=== PATIENT | male | born 1970 | race Caucasian/White ===

== ENCOUNTER 2016-12-11 00:35 | Emergency (ER) | payer BC ==
[2016-12-11 00:51] LABS: Glucose,Whole Blood 91 mg/dL (75-99)
[2016-12-11] MEDS ORDERED: predniSONE 20 MG TAB PO STA (01:09)
[2016-12-11] MEDS ORDERED: valACYclovir 500 MG TAB PO STA (01:09)
--- NOTE | 2016-12-11 01:16 | ED ---
General Adult HPI - General Chief complaint: Neuro Symptoms/Deficit Stated complaint: stroke symptoms Time Seen by Provider: 12/11/16 00:44 Source: patient Mode of arrival: ambulatory Limitations: no limitations - History of Present Illness Initial comments: This patient is a 46-year-old man who presents to be evaluated for right-sided facial numbness and weakness. The patient states that he was in his usual state of health until over about the past day when he felt he was developing an ear infection. He went to see his clinic doctor and was started on medication. The patient states that starting about an hour before he got here, he started feeling some numbness to his right face and then when he tried to spit he noted that there was some dribbling from the right side of his mouth. The patient was concerning may be having a stroke and came here to be evaluated. Patient denies other symptoms. No headache, no change in vision, speech or swallowing. No weakness or numbness of the extremities. Onset/Timin -: hour(s) Location: face Radiation: non-radiation Quality: dull Consistency: constant Improves with: none Worsens with: none Associated Symptoms: other (Ear pain) - Related Data Home Medications Medication Instructions Recorded Confirmed Amoxicillin 875 mg PO Q12HR 12/11/16 12/11/16 Metoprolol Tartrate [Lopressor] 25 mg PO DAILY 12/11/16 12/11/16 Previous Rx's Medication Instructions Recorded Hydrocodone/Acetaminophen [[place] 1 each PO Q6HR PRN #20 tab 12/11/16 5-325] predniSONE 40 mg PO BID #15 tab 12/11/16 valACYclovir HCL [Valacyclovir] 1,000 mg PO Q12HR #14 tab 12/11/16 Allergies Allergy/AdvReac Type Severity Reaction Status Date / Time lisinopril Allergy Swelling Verified 12/11/16 00:39 Review of Systems ROS Statement: Those systems with pertinent positive or pertinent negative responses have been documented in the HPI. ROS Other: All systems not noted in ROS Statement are negative. Constitutional: Denies: fever, chills Eyes: Denies: eye pain, eye discharge, vision change ENT: Reports: ear pain. Denies: hearing loss Respiratory: Denies: cough, dyspnea Cardiovascular: Denies: chest pain, palpitations, syncope Gastrointestinal: Denies: abdominal pain, vomiting, diarrhea Genitourinary: Denies: dysuria Musculoskeletal: Denies: back pain Skin: Denies: rash Neurological: Reports: weakness (Right face), numbness (Right face). Denies: headache, confusion Past Medical History Past Medical History: No Reported History History of Any Multi-Drug Resistant Organisms: None Reported Past Surgical History: No Surgical Hx Reported Past Psychological History: No Psychological Hx Reported Smoking Status: Never smoker Past Alcohol Use History: Occasional Past Drug Use History: None Reported General Exam Limitations: no limitations General appearance: alert, in no apparent distress Head exam: Present: atraumatic, normocephalic Eye exam: Present: PERRL, EOMI. Absent: scleral icterus, conjunctival injection , nystagmus, periorbital swelling, periorbital tenderness ENT exam: Present: normal oropharynx, mucous membranes moist, TM's normal bilaterally, normal external ear exam Neck exam: Present: normal inspection, full ROM. Absent: tenderness, meningismus Respiratory exam: Present: normal lung sounds bilaterally. Absent: respiratory distress, wheezes, rales, rhonchi, stridor Cardiovascular Exam: Present: regular rate, normal rhythm, normal heart sounds. Absent: systolic murmur, diastolic murmur, rubs, gallop GI/Abdominal exam: Present: soft. Absent: distended, tenderness, guarding, rebound Neurological exam: Present: alert, oriented X3, other (Patient has right-sided facial weakness, including the upper portion of the face.). Absent: motor sensory deficit Skin exam: Present: warm, dry, intact, normal color. Absent: rash Course Vital Signs 12/11/16 12/11/16 12/11/16 00:36 00:45 01:39 Temperature 98.0 F Pulse Rate 68 62 62 Respiratory 18 16 18 Rate Blood Pressure 180/109 143/98 126/82 O2 Sat by Pulse 98 94 L 95 Oximetry EKG Findings - EKG Results: EKG: interpreted by ERMD, sinus rhythm (Rate 60 bpm) - Blocks, [place], Hypertrophy, ST Abn: AV and intraventricular conduction: right bundle branch block (fixed/ intermittent, complete/incomplete) QRS axis and voltage: left axis deviation (-30 to -90) Chamber hypertrophy or enlargement: only voltage criteria for left ventricular hypertrophy Medical Decision Making - Medical Decision Making This patient is a 46-year-old man presenting with right facial weakness that is consistent with Phillips's palsy as the upper face is affected as well without any sparing. Given the history of the ear symptoms this is also consistent. There are no herpetic lesions visible. The patient started on medical treatment here with prescription as well. Discussed appropriate care and follow-up - Lab Data Lab Results 12/11/16 Range/Units 00:49 POC Glucose (mg/dL) 91 (75-99) mg/dL POC Glu Flatbed Stitcher ID Erlinda Pierson Disposition Clinical Impression: Phillips's palsy Disposition: HOME SELF-CARE Condition: Fair Instructions: Phillips Palsy (ED) Prescriptions: Hydrocodone/Acetaminophen [[place] 5-325] 1 each PO Q6HR PRN #20 tab PRN Reason: Pain predniSONE 40 mg PO BID #15 tab valACYclovir HCL [Valacyclovir] 1,000 mg PO Q12HR #14 tab Referrals: Deshawn Lima III, MD [Primary Care Provider] - 1-2 days
[2016-12-11 03:56] VITALS: BP 132/90; PULSE 61; RESP 16; TEMP 97.2
== END 2016-12-11 02:42 | disposition home or self-care (01) ==
LOC: EC 00:35
DX: G51.0 Bell's palsy (principal); Z79.899 Other long term (current) drug therapy; Z88.8 Allergy status to other drugs, medicaments and biological substances
CPT/HCPCS: 36415; 93005; 99284; J7512

== ENCOUNTER 2019-09-20 11:10 | Day surgery (SDC) | payer BC ==
[2019-09-17 18:02] VITALS: BMI 30.7
[~2019-09-20 11:10] MED LIST: LACTATED RINGERS 1,000 ML IV SCH
[2019-09-20 11:42] VITALS: RESP 16; TEMP 98.2
[2019-09-20] MEDS ORDERED: LIDOCAINE 1% (10MG/ML) FOR IV START INTRADERMA ONE (11:42)
[2019-09-20] MEDS ORDERED: PROPOFOL 10 MG/ML 20 ML VIAL IV ONE (12:07)
--- NOTE | 2019-09-20 12:12 | P.GSHP ---
History of Present Illness H&P Date: 09/20/19 Chief Complaint: Screening colonoscopy This a 49-year-old male who presents today for screening colonoscopy. Patient denies a significant GI complaints. Past Medical History Past Medical History: Hypertension Additional Past Medical History / Comment(s): Off Rx for HTN d/t wgt loss. History of Any Multi-Drug Resistant Organisms: None Reported Past Surgical History: Hernia Repair, Orthopedic Surgery Additional Past Surgical History / Comment(s): Colonoscopy. 3 knee scopes - 2 Rt, 1 Lt. Hiatal hernia repair. Past Anesthesia/Blood Transfusion Reactions: No Reported Reaction Smoking Status: Never smoker - Past Family History Father Family Medical History: Cancer Mother Family Medical History: Cancer Medications and Allergies Home Medications Medication Instructions Recorded Confirmed Type Cholecalciferol (Vitamin D3) 500 unit PO DAILY 09/17/19 09/20/19 History [Vitamin D3] Collagen 180 mg PO DAILY 09/17/19 09/20/19 History Ibuprofen [Motrin Ib] 200 mg PO Q8H PRN 09/17/19 09/20/19 History [place]-3 Fatty Acids [[place]-3] 1,000 mg PO DAILY 09/17/19 09/20/19 History Turmeric Root Extract [Turmeric] 2,000 mg PO DAILY 09/17/19 09/20/19 History Allergies Allergy/AdvReac Type Severity Reaction Status Date / Time lisinopril Allergy Swelling Verified 09/20/19 11:25 Surgical - Exam Vital Signs Temp Pulse Resp BP Pulse Ox 98.2 F 76 16 138/89 100 09/20/19 11:32 09/20/19 11:32 09/20/19 11:32 09/20/19 11:32 09/20/19 11:32 - General well developed, well nourished, no distress - Eyes PERRL - ENT normal pinna - Neck no masses - Respiratory normal expansion - Cardiovascular Rhythm: regular - Abdomen Abdomen: soft, non tender Assessment and Plan Plan: We'll perform screening colonoscopy
--- NOTE | 2019-09-20 12:21 | P.OP ---
Date of Procedure: 09/20/19 Preoperative Diagnosis: Screening colonoscopy Postoperative Diagnosis: Internal hemorrhoids Procedure(s) Performed: Colonoscopy Anesthesia: MAC Surgeon: Gee Parks Pathology: none sent Condition: stable Disposition: PACU Description of Procedure: The patient's placed on the endoscopy table in the lateral position. He received IV sedation. Digital rectal exam was performed which revealed internal hemorrhoids. Flexible colonoscope was then placed patient anus passed throughout the entire colon. The ileocecal valve was visualized. The cecum, ascending transverse colon appeared normal. The descending and; appeared normal. Scope was then brought back the rectum and this appeared normal. Scope withdrawn for patient.
[2019-09-20 12:51] VITALS: BP 128/82; PULSE 75
== END 2019-09-20 13:12 | disposition home or self-care (01) ==
LOC: ORWHC2ENDO 11:10
PROVIDERS: ATTEND Surgery
DX: Z12.11 Encounter for screening for malignant neoplasm of colon (principal); K64.8 Other hemorrhoids; I10 Essential (primary) hypertension; Z79.899 Other long term (current) drug therapy; Z88.8 Allergy status to other drugs, medicaments and biological substances; Z98.890 Other specified postprocedural states; Z80.9 Family history of malignant neoplasm, unspecified
CPT/HCPCS: G0121; J2704; 45378

== ENCOUNTER → 2020-01-09 | Outpatient (CLI) | payer BC ==
[2020-01-09 11:09] LABS: HCT 43.7 % (39.0-53.0); HGB 14.2 gm/dL (13.0-17.5); MCH 30.2 pg (25.0-35.0); MCHC 32.4 g/dL (31.0-37.0); MCV 93.1 fL (80.0-100.0); Mean Platelet Volume 6.8; Platelet Count 402 k/uL (150-450); RDW 12.4 % (11.5-15.5); WBC 8.1 k/uL (3.8-10.6)
== END | disposition home or self-care (01) ==
LOC: LABWHC1 10:33
PROVIDERS: ATTEND Orthopaedic Surgery
DX: Z01.818 Encounter for other preprocedural examination (principal); Z01.812 Encounter for preprocedural laboratory examination
CPT/HCPCS: 36415; 85027; 87070

== ENCOUNTER 2020-03-11 08:31 | Day surgery (SDC) | payer BC ==
[2020-03-05 16:25] VITALS: BMI 29.5
[~2020-03-11 08:31] MED LIST changes: +ACETAMINOPHEN TAB 500 MG TAB PO ONE; +HEPARIN SODIUM,PORCINE 5,000 UNIT/ML 1 ML VIAL SQ ONE; +HYDROmorphone 0.5 MG/0.5 ML SYRINGE IVP PRN; +NA PHOS,M-B/NA PHOS,DI-BA 133 ML ENEMA RECTAL ONE; +Pre Op ABX Message 1 EACH MISC MISCELLANE ONE
[2020-03-11 09:01] VITALS: TEMP 97.8
[2020-03-11] MEDS ORDERED: DEXAMETHASONE SOD PHOS (MDV) 100 MG/10 ML VIAL IVP ONE (09:15)
[2020-03-11] MEDS ORDERED: LACTATED RINGERS 1,000 ML IV ONE ×2 (09:15→11:12)
[2020-03-11] MEDS ORDERED: ONDANSETRON 4 MG/2 ML VIAL IVP ONE (09:15)
[2020-03-11] MEDS ORDERED: MIDAZOLAM 2 MG/2 ML VIAL IV ONE (10:15)
[2020-03-11 10:23] VITALS: RESP 16
--- NOTE | 2020-03-11 10:36 | P.GSHP ---
History of Present Illness H&P Date: 03/11/20 Chief Complaint: Internal and external hemorrhoids This 48-year-old male presents today for hemorrhoidectomy. He has issues with itching and burning pain and rectal bleeding. Past Medical History Past Medical History: Hypertension, Osteoarthritis (OA), Sleep Apnea/CPAP/BIPAP Additional Past Medical History / Comment(s): Off Rx for HTN d/t wgt loss. No tx for sleep apnea. Varicose veins. Hemorrhoids. History of Any Multi-Drug Resistant Organisms: None Reported Past Surgical History: Hernia Repair, Joint Replacement, Orthopedic Surgery Additional Past Surgical History / Comment(s): Colonoscopy. 3 knee scopes - 2 Rt, 1 Lt. Hiatal hernia repair. Rt little finger fx repair. Total Rt Knee 02/06/20. Past Anesthesia/Blood Transfusion Reactions: No Reported Reaction Smoking Status: Never smoker - Past Family History Mother Family Medical History: Cancer Father Family Medical History: Cancer Additional Family Medical History / Comment(s): prostate cancer Medications and Allergies Home Medications Medication Instructions Recorded Confirmed Type Ibuprofen [Motrin Ib] 200 mg PO Q8H PRN 09/17/19 03/05/20 History Acetaminophen [Tylenol Extra 500 - 1,000 mg PO DIRECTED PRN 03/05/20 03/05/20 History Strength] Aspirin 325 mg PO BID 03/05/20 03/05/20 History Psyllium Husk 100% [Metamucil 6 gm PO DAILY 03/05/20 03/05/20 History Packet] Allergies Allergy/AdvReac Type Severity Reaction Status Date / Time lisinopril Allergy Swelling Verified 03/05/20 15:53 Surgical - Exam Vital Signs Temp Pulse Resp BP Pulse Ox 97.8 F 76 18 147/86 98 03/11/20 08:59 03/11/20 08:59 03/11/20 08:59 03/11/20 08:59 03/11/20 08:59 - General well developed, well nourished, no distress - Eyes PERRL - ENT normal pinna - Neck no masses - Respiratory normal expansion - Cardiovascular Rhythm: regular - Abdomen Abdomen: soft, non tender Assessment and Plan Assessment: Internal and external hemorrhoids. We'll perform hemorrhoidectomy.
[2020-03-11] MEDS ORDERED: KETAMINE 10 MG/ML 20 ML VIAL ONE (10:47)
[2020-03-11] MEDS ORDERED: HYDROmorphone (PF) 1 MG/ML ONE (10:47)
[2020-03-11] MEDS ORDERED: PROPOFOL 10 MG/ML 20 ML VIAL IV ONE (10:47)
[2020-03-11] MEDS ORDERED: MIDAZOLAM 2 MG/2 ML VIAL ONE (10:47)
[2020-03-11] MEDS ORDERED: LIDOCAINE 1% INJ 10MG/ML (20 ML MDV) ONE (10:47)
[2020-03-11] MEDS ORDERED: KETOROLAC 30 MG/ML 1 ML VIAL ONE (10:47)
[2020-03-11] MEDS ORDERED: fentaNYL (PF) 50 MCG/ML 2 ML AMP ONE (10:47)
--- NOTE | 2020-03-11 11:18 | P.OP ---
Date of Procedure: 03/11/20 Preoperative Diagnosis: Internal and external hemorrhoids Postoperative Diagnosis: Internal and external hemorrhoids Procedure(s) Performed: Internal and external hemorrhoidectomy Anesthesia: MAC Surgeon: Gee Parks Estimated Blood Loss (ml): 5 Pathology: other (Internal and external hemorrhoids) Condition: stable Disposition: PACU Description of Procedure: The patient's placed on the operative table in the prone jackknife position. He received IV sedation. His anus was prepped and draped usual fashion. The anus was anesthetized 1% local Xylocaine. The anal retractors placed anus. The left lateral hemorrhoidal column was grasped. Allis clips and using the Harmonic scissors the hemorrhoid was performed. Next the right anterior hemorrhoid column was grasped with an Allis clamp and then using Harmonic scissors the hemorrhoid was performed. There is no bleeding seen. Anus is packed with Gelfoam. Patient top she will was sent to recovery in stable condition.
[2020-03-11] MEDS ORDERED: BUPIVACAINE (PF) 0.25% 30 ML VIAL SQ ONE (11:25)
[2020-03-11 11:50] VITALS: BP 146/88; PULSE 66
== END 2020-03-11 12:06 | disposition home or self-care (01) ==
LOC: OR 08:31
PROVIDERS: ATTEND Surgery
DX: K64.8 Other hemorrhoids (principal); K64.4 Residual hemorrhoidal skin tags; I10 Essential (primary) hypertension; M19.90 Unspecified osteoarthritis, unspecified site; G47.30 Sleep apnea, unspecified; R63.4 Abnormal weight loss; Z96.651 Presence of right artificial knee joint; Z98.890 Other specified postprocedural states; Z80.42 Family history of malignant neoplasm of prostate; Z80.9 Family history of malignant neoplasm, unspecified; Z79.82 Long term (current) use of aspirin; Z79.899 Other long term (current) drug therapy; Z88.8 Allergy status to other drugs, medicaments and biological substances
CPT/HCPCS: 88304; 46260; J2250; J1644; J2405; J2001; J3010; J1885; J1170; J1100; J2704

== ENCOUNTER → 2020-05-07 | Outpatient (CLI) | payer BC ==
--- NOTE | 2020-05-07 20:34 | CONS ---
CONSULTATION DATE OF SERVICE: 05/07/2020 This patient is a 50-year-old gentleman who has been evaluated in Sleep Center for obstructive sleep apnea-hypopnea syndrome. HISTORY OF PRESENT ILLNESS/SLEEP-WAKE EVALUATION: The patient was diagnosed with obstructive sleep apnea about 16 years ago. He was on treatment with CPAP until about 2 years ago, when he lost 20 pounds and stopped using his machine. The patient's present sleep schedule during working days is from 9 or 10 p.m. until 5 a.m. and on weekends from 10:30 p.m. until 7 a.m. No problems with falling asleep. No TV in the bedroom. According to the patient, he does not snore, but he wakes up from sleep 2 times with up to 2 episodes of nocturia at night. Positive history of awakenings with dry mouth and sweating. During the day the patient may take a nap around 2:30 p.m. [place] Sleepiness Scale is 5. PAST MEDICAL HISTORY: Past medical history is positive for hypertension. After losing weight, blood pressure normalized, according to the patient. Knee problems. PAST SURGICAL HISTORY: Hiatal hernia repair, right knee replacement. MEDICATIONS: None. SOCIAL HISTORY: Negative for smoking. Alcohol consumption occasional. FAMILY HISTORY: Cancer, hyperlipidemia, hypertension, acid reflux. PHYSICAL EXAMINATION: GENERAL: A pleasant patient in no distress. VITAL SIGNS: BP 136/88, HR 72, RR 15, height 5 feet 10-1/2 inches, weight 204 pounds, BMI 29.2, temperature 98.8, oxygen saturation at room air 96%. HEENT: PERRLA, EOMI. Evaluation of oropharynx showed tongue protrudes midline. Moderately low position of soft palate. Mallampati II to III. NECK: Supple. No JVD. Thyroid is not palpable. Neck measures 16 inches in circumference. LUNGS: Clear to percussion and to auscultation. Good air exchange. No wheezing or rhonchi. HEART: S1, S2 regular. No murmurs, gallops or rubs. ABDOMEN: Soft and nontender. Bowel sounds are present. No organomegaly appreciated. EXTREMITIES: No clubbing or cyanosis. ELIGIBILITY EXAMINER: Awake, alert, and oriented X3. Cranial nerves 2 to 7 intact. There is no fasciculation or atrophy. noted. No focal deficits observed. IMPRESSION: 1. History of obstructive sleep apnea-hypopnea syndrome, positive history of snoring in the past, at present awakenings from sleep 2 times with nocturia. The patient stopped CPAP after he lost 20 pounds. He has a moderately low position of soft palate. Possible obstructive sleep apnea-hypopnea syndrome. 2. Overweight, borderline to obesity. BMI 29.2. 3. History of hypertension. According to the patient, blood pressure improved after he lost weight. 4. Knee problems. The patient is preparing for a knee replacement. 5. Status post surgical treatment for hiatal hernia. PLAN: 1. Home sleep apnea test for evaluation of patient's breathing during sleep. 2. Following plan after reviewing results of sleep study. 3. Watching and losing weight. 4. Sleep hygiene with regular time in bed for 7-1/2 to 8 hours. 5. No driving if feeling any sleepiness. Thank you very much for referring this patient for consultation. Sincerely, Manish Fuchs MD, PhD, FAASM Diplomat of [place] [employer] [place] [employer] Wheel Polisher of [facility] [place] MMODL / IJN: [id number] /
== END | disposition home or self-care (01) ==
LOC: SLEEP 15:39
PROVIDERS: ATTEND Internal Medicine
DX: R35.1 Nocturia (principal); Z96.659 Presence of unspecified artificial knee joint; Z87.898 Personal history of other specified conditions; Z87.19 Personal history of other diseases of the digestive system
CPT/HCPCS: 99211

== ENCOUNTER → 2020-05-12 | Outpatient (CLI) | payer BC ==
[2020-05-12 17:16] LABS: HCT 43.7 % (39.0-53.0); HGB 14.3 gm/dL (13.0-17.5); MCH 30.6 pg (25.0-35.0); MCHC 32.6 g/dL (31.0-37.0); MCV 93.9 fL (80.0-100.0); Mean Platelet Volume 6.9; Platelet Count 301 k/uL (150-450); RBC 4.66 m/uL (4.30-5.90); RDW 12.6 % (11.5-15.5); WBC 6.5 k/uL (3.8-10.6)
== END | disposition home or self-care (01) ==
LOC: LABWHC1 15:46
PROVIDERS: ATTEND Orthopaedic Surgery
DX: Z01.818 Encounter for other preprocedural examination (principal); Z01.812 Encounter for preprocedural laboratory examination
CPT/HCPCS: 36415; 85027; 87070

== ENCOUNTER → 2020-09-17 | Outpatient (CLI) | payer BC ==
--- NOTE | 2020-09-17 23:38 | SFUN ---
SLEEP CENTER FOLLOW UP NOTE DATE OF SERVICE: 09/17/2020 This is a 50-year-old gentleman who has been followed in Sleep Center for treatment of obstructive sleep apnea-hypopnea syndrome. Recently the patient had a home sleep apnea test which showed moderate obstructive sleep apnea-hypopnea syndrome, and I discussed results of the sleep study with the patient in detail. I started the patient on treatment with CPAP, and today is his first visit after treatment with CPAP was initiated. The patient sleeps better with the CPAP, feels better during the day. He does not complain of any significant problems with the CPAP unit at present. He has already changed his mask several times from nasal pillows to full-face mask. [place] Sleepiness Scale today is only 1, which is normal. I checked his CPAP unit. Range of the pressure is 5 to 15 with average pressure 12.6 cm of water. Usage is 29/30 nights, and 18/30 nights for more than 4 hours, with average usage 4.5 hours per night. Leak is 24 L/minute, which is borderline. Apnea-hypopnea index is 2.2, which is normal. MEDICATIONS: None. PHYSICAL EXAMINATION: GENERAL: A pleasant patient in no distress. VITAL SIGNS: BP 146/87, HR 78, RR 18, weight 223 pounds, temperature 97.3, oxygen saturation at room air 98%. HEENT: PERRLA, EOMI. Evaluation of oropharynx showed tongue protrudes midline. Mallampati II to III. NECK: Supple. No JVD. Thyroid is not palpable. LUNGS: Clear to percussion and to auscultation. Good air exchange. No wheezing or rhonchi. HEART: S1, S2 regular. No murmurs, gallops or rubs. ABDOMEN: Soft and nontender. Bowel sounds are present. No organomegaly appreciated. EXTREMITIES: No clubbing or cyanosis. MINE TECHNICIAN: Awake, alert, and oriented X3. Cranial nerves 2 to 7 intact. There is no fasciculation or atrophy. noted. No focal deficits observed. IMPRESSION: 1. Obstructive sleep apnea-hypopnea syndrome. Patient demonstrated great compliance with treatment, benefitting from treatment. 2. Overweight. 3. History of hypertension in the past. Borderline blood pressure in the office. 4. Knee problem. 5. Status post surgical treatment for hiatal hernia. PLAN: 1. Patient will continue to use PAP equipment every night for the whole night. 2. Sleep hygiene with regular time in bed for at least 7-1/2 to 8 hours. 3. Precautions related to driving. No driving if feeling sleepiness. 4. I will maintain all necessary prescription for PAP supplies including mask, tube, filters. 5. Watching weight. 6. No driving if feeling sleepiness. 7. Follow-up visit in 6 months or earlier if patient has any problems. Thank you very much for allowing me to participate in the management of your patient. Sincerely, Manish Fuchs MD, PhD, FAASM Diplomat of [place] [employer] [place] [employer] Clinical Practice Consultant of [facility] [place] MMODL / IJN: [id number] /
== END | disposition home or self-care (01) ==
LOC: SLEEP 15:36
PROVIDERS: ATTEND Internal Medicine
DX: G47.33 Obstructive sleep apnea (adult) (pediatric) (principal); E66.3 Overweight; Z86.79 Personal history of other diseases of the circulatory system; M25.569 Pain in unspecified knee; Z98.890 Other specified postprocedural states; Z99.89 Dependence on other enabling machines and devices

== ENCOUNTER → 2021-04-15 | Outpatient (CLI) | payer BC ==
--- NOTE | 2021-04-15 21:21 | SFUN ---
SLEEP CENTER FOLLOW UP NOTE DATE OF SERVICE: 04/15/2021 This 51-year-old gentleman has been followed in Sleep Center for treatment of obstructive sleep apnea-hypopnea syndrome. Patient continues to use his CPAP equipment but feels that the pressure is too high. Sometimes he feels discomfort in his ears and sometimes he feels some discomfort in his chest in the morning after using the machine. [place] Sleepiness Scale today is zero. I checked his CPAP unit. It is in automatic regimen. Range of the pressure is 5-15, average pressure 13.2, usage 22/30 nights and 16/30 nights for more than 4 hours. Leak is 23 L/minute. Apnea-hypopnea index is 2.7, which is totally normal. MEDICATIONS: None. PHYSICAL EXAMINATION: GENERAL: Pleasant patient in no distress. VITAL SIGNS: BP 138/87, HR 64, RR 12, height 5 feet 11 inches, weight 228.0, body mass index 31.7. The patient's weight increased by 5 pounds. Temperature 97.3. HEENT: PERRLA, EOMI, evaluation of oropharynx showed tongue protrudes midline. Slightly low position of soft palate; Mallampati II to III. NECK: Supple, no JVD. Thyroid is not palpable. LUNGS: Clear to percussion and to auscultation. Good air exchange. No wheezing or rhonchi. HEART: S1, S2 regular. No murmurs, gallops, or rubs. ABDOMEN: Soft and nontender. Bowel sounds are present. No organomegaly appreciated. EXTREMITIES: No clubbing or cyanosis. SHIPPING ROOM SUPERVISOR: Awake, alert, and oriented X3. Cranial nerves 2 to 7 intact. There is no fasciculation or atrophy. noted. No focal deficits observed. IMPRESSION: 1. Obstructive sleep apnea-hypopnea syndrome. The patient demonstrated borderline compliance with treatment, benefitting from treatment. 2. The patient feels discomfort in the ears and in the chest after using CPAP. 3. Mild obesity. Body mass index 31.7. 4. History of hypertension in the past. Borderline blood pressure in the office. 5. Knee problems. 6. Status post surgical treatment for hiatal hernia. PLAN: 1. I changed regimen in the CPAP unit down. Range of the pressure will be 5-12 cm of water. 2. Patient will continue to use PAP equipment every night for the whole night. 3. Sleep hygiene with regular time in bed for at least 7-1/2 to 8 hours. 4. Precautions related to driving. No driving if feeling sleepiness. 5. I will maintain all necessary prescription for PAP supplies including mask, tube, filters. 6. Watching weight. 7. Follow-up visit in 2 months or earlier if patient has any problems. I spent 30 minutes with the patient and documentation. Thank you very much for allowing me to participate in the management of your patient. Sincerely, Manish Fuchs MD, PhD, FAASM Diplomat of [place] [employer] Sleep Medicine Board of [place] [employer] Offender Employment Specialist of [facility] [place] MMODL / IJN: [id number] /
== END | disposition home or self-care (01) ==
LOC: SLEEP 14:23
PROVIDERS: ATTEND Internal Medicine
DX: G47.33 Obstructive sleep apnea (adult) (pediatric) (principal); E66.9 Obesity, unspecified; I10 Essential (primary) hypertension; K44.9 Diaphragmatic hernia without obstruction or gangrene; Z68.31 Body mass index [BMI] 31.0-31.9, adult

== ENCOUNTER → 2021-06-16 | Outpatient (CLI) | payer BC ==
--- NOTE | 2021-06-17 08:29 | SFUN ---
SLEEP CENTER FOLLOW UP NOTE DATE OF SERVICE: This 51-year-old gentleman has been followed in Sleep Center for treatment of obstructive sleep apnea-hypopnea syndrome. The patient was on treatment with CPAP but stopped using his machine for about 10 days because again he developed some chest discomfort after using CPAP. He does not have chest discomfort while he is using CPAP. He feels some chest discomfort on the following day after the night when he used CPAP. I checked his CPAP unit. Pressure was decreased last time from the maximal level of 15 to the maximal level of 12, now with range of the pressure 5 to 12 and average pressure in the machine 11.8. Usage is 16/30 nights and 12/30 nights for more than 4 hours. Average 4.6 hours per night. Leak is 23 L/minute, which is borderline. Apnea-hypopnea index is 3.3, which is in normal range. The last time it was 2.7. Medications: None. [place] Sleepiness Scale is 3. PHYSICAL EXAMINATION: GENERAL APPEARANCE: Pleasant patient in no distress. VITAL SIGNS: BP 155/97, HR 69, RR 18, height 5 feet 10 inches, weight 227.4, temperature 97.1, body mass index 32.5, oxygen saturation at room air 96%. HEENT: PERRLA, EOMI, evaluation of oropharynx showed tongue protrudes midline. Mallampati II to III. NECK: Supple, no JVD. Thyroid is not palpable. LUNGS: Clear to percussion and to auscultation. Good air exchange. No wheezing or rhonchi. HEART: S1, S2 regular. No murmurs, gallops, or rubs. ABDOMEN: Slightly obese. EXTREMITIES: No clubbing or cyanosis. MAJOR DONOR COORDINATOR: Awake, alert, and oriented X3. Cranial nerves 2 to 7 intact. There is no fasciculation or atrophy. noted. No focal deficits observed. IMPRESSION: 1. Obstructive sleep apnea-hypopnea syndrome. Patient still has some discomfort in the chest after using CPAP; this is after pressure was decreased during previous visit. 2. Mild obesity. 3. Hypertension in the office. 4. Knee problems. 5. Status post surgical treatment for hiatal hernia. PLAN: 1. I changed pressure down in the CPAP unit to the range of pressure 5 to 8 cm of water. 2. Patient will continue to use CPAP equipment every night. 3. If the patient feels any discomfort in the chest, he will stop using CPAP and let us know. 4. Losing weight. 5. Sleep hygiene with regular time in bed for 7-1/2 to 8 hours. 6. No driving if feeling sleepiness. 7. Follow-up visit in 3 months or earlier again if patient has any problems. Thank you very much for allowing me to participate in the management of your patient. Sincerely, Manish Fuchs MD, PhD, FAASM Diplomat of [place] [employer] Special[employer] Sleep Medicine Board of [place] [employer] of Internal Medicine Curriculum Manager of [facility] [place] MMODL / SIMIN: [id number] /
== END | disposition home or self-care (01) ==
LOC: SLEEP 14:22
PROVIDERS: ATTEND Internal Medicine
DX: G47.33 Obstructive sleep apnea (adult) (pediatric) (principal); E66.9 Obesity, unspecified; I10 Essential (primary) hypertension; Z98.890 Other specified postprocedural states

== ENCOUNTER → 2021-06-23 | Outpatient (CLI) | payer BC ==
[~2021-06-23] MED LIST changes: -ACETAMINOPHEN TAB 500 MG TAB PO ONE; +CASIRIVIMAB/IMDEVIMAB (EUA) 1,200 MG in SODIUM CHLORIDE 0.9% 100 ML IVPB NR; -HEPARIN SODIUM,PORCINE 5,000 UNIT/ML 1 ML VIAL SQ ONE; -HYDROmorphone 0.5 MG/0.5 ML SYRINGE IVP PRN; -LACTATED RINGERS 1,000 ML IV SCH; -NA PHOS,M-B/NA PHOS,DI-BA 133 ML ENEMA RECTAL ONE; -Pre Op ABX Message 1 EACH MISC MISCELLANE ONE; +SODIUM CHLORIDE 0.9% 50 ML IVPB NR; +SODIUM CHLORIDE 0.9% 500 ML 500 ML in EMPTY BAG 1 BAG IV PRN
[2021-06-23 14:06] VITALS: TEMP 98.5
[2021-06-23 15:02] VITALS: BP 131/83; PULSE 87; RESP 16
== END | disposition home or self-care (01) ==
LOC: PROCWHC3 13:11
PROVIDERS: ATTEND Family Medicine
DX: U07.1 COVID-19 (principal)
CPT/HCPCS: 96360; Q0243; M0243

== ENCOUNTER 2021-06-26 17:08 | Emergency (ER) | payer BC ==
[2021-06-26] MEDS ORDERED: KETOROLAC 30 MG/ML 1 ML VIAL IVP STA (23:03)
[2021-06-26] MEDS ORDERED: SODIUM CHLORIDE 0.9% 1,000 ML IV STA ×2 (23:03)
[2021-06-26] MEDS ORDERED: DEXAMETHASONE SOD PHOSPHATE 10 MG/ML 1 ML VIAL IVP STA (23:03)
[2021-06-26] MEDS ORDERED: ACETAMINOPHEN TAB 500 MG TAB PO STA (23:03)
--- NOTE | 2021-06-26 23:05 | ED ---
Recheck HPI - General Chief Complaint: Nausea/Vomiting/Diarrhea Stated Complaint: Revisit/MedReaction/Nausea Time Seen by Provider: 06/26/21 23:02 Source: patient, RN notes reviewed, old records reviewed Mode of arrival: wheelchair Limitations: no limitations - History of Present Illness Initial Comments: This is a 51-year-old male to the ER for evaluation patient has known positive history of coronavirus coming in for evaluation regarding nausea and vomiting under coronavirus did get antibiodies still not feeling well. MD Complaint: abnormal lab (Positive for coronavirus) -: days(s) Returns Today for: Called Because of Abnormal Lab/Test, persistent/worsening pain related to initial visit, other (Persistent nausea and vomiting) Symptoms Since Prior Visit: worsening pain, fever Context: ran out of medication Associated Symptoms: fever, chills, malaise, nausea, abdominal pain Treatments Prior to Arrival: other medications, Given Pain Meds on - Related Data Home Medications Medication Instructions Recorded Confirmed Ibuprofen [Motrin Ib] 200 mg PO Q8H PRN 09/17/19 03/05/20 Acetaminophen [Tylenol Extra 500 - 1,000 mg PO DIRECTED PRN 03/05/20 03/05/20 Strength] Previous Rx's Medication Instructions Recorded Pantoprazole [Protonix] 40 mg PO DAILY #30 tab 06/27/21 Prochlorperazine [Compazine] 5 mg PO Q6HR #30 tab 06/27/21 Allergies Allergy/AdvReac Type Severity Reaction Status Date / Time lisinopril Allergy Swelling Verified 06/26/21 19:05 Review of Systems ROS Statement: Those systems with pertinent positive or pertinent negative responses have been documented in the HPI. ROS Other: All systems not noted in ROS Statement are negative. Past Medical History Past Medical History: Hypertension, Osteoarthritis (OA), Sleep Apnea/CPAP/BIPAP Additional Past Medical History / Comment(s): Off Rx for HTN d/t wgt loss. No tx for sleep apnea. Varicose veins. Hemorrhoids. History of Any Multi-Drug Resistant Organisms: None Reported Past Surgical History: Hernia Repair, Joint Replacement, Orthopedic Surgery Additional Past Surgical History / Comment(s): Colonoscopy. 3 knee scopes - 2 Rt, 1 Lt. Hiatal hernia repair. Rt little finger fx repair. Total Rt Knee 02/06/20. Past Anesthesia/Blood Transfusion Reactions: No Reported Reaction Past Psychological History: No Psychological Hx Reported Smoking Status: Never smoker Past Alcohol Use History: None Reported Past Drug Use History: None Reported - Past Family History Mother Family Medical History: Cancer Father Family Medical History: Cancer Additional Family Medical History / Comment(s): prostate cancer General Exam Limitations: no limitations General appearance: alert, in no apparent distress Head exam: Present: atraumatic, normocephalic, normal inspection Eye exam: Present: normal appearance, PERRL, EOMI. Absent: scleral icterus, conjunctival injection, periorbital swelling ENT exam: Present: normal exam, mucous membranes moist Neck exam: Present: normal inspection. Absent: tenderness, meningismus, lymphadenopathy Respiratory exam: Present: normal lung sounds bilaterally. Absent: respiratory distress, wheezes, rales, rhonchi, stridor Cardiovascular Exam: Present: regular rate, normal rhythm, normal heart sounds. Absent: systolic murmur, diastolic murmur, rubs, gallop, clicks GI/Abdominal exam: Present: soft, normal bowel sounds. Absent: distended, tenderness, guarding, rebound, rigid Extremities exam: Present: normal inspection, full ROM, normal capillary refill. Absent: tenderness, pedal edema, joint swelling, calf tenderness Back exam: Present: normal inspection Neurological exam: Present: alert, oriented X3, CN II-XII intact Psychiatric exam: Present: normal affect, normal mood Skin exam: Present: warm, dry, intact, normal color. Absent: rash Course Vital Signs 06/26/21 06/26/21 06/27/21 19:02 23:30 00:50 Temperature 98.5 F 98.3 F Pulse Rate 84 71 77 Respiratory 16 20 18 Rate Blood Pressure 140/87 139/71 124/78 O2 Sat by Pulse 98 95 99 Oximetry - Reevaluation(s) Reevaluation #1: 06/27/21 01:02 Medical record is reviewed Reevaluation #2: 06/27/21 01:02 Patient symptoms are significantly improved here in the ER Medical Decision Making - Medical Decision Making 51 male DF for evaluation of nausea vomiting with coronavirus. No other proble ms here in the emergency room, symptoms are resolved and patient can be discharged home - Lab Data Result diagrams: 06/26/21 23:14 06/26/21 23:14 Lab Results 06/26/21 06/26/21 06/26/21 Range/Units 23:14 23:14 23:14 WBC 7.9 (3.8-10.6) k/uL RBC 4.99 (4.30-5.90) m/uL Hgb 15.6 (13.0-17.5) gm/dL Hct 44.9 (39.0-53.0) % MCV 90.0 (80.0-100.0) fL MCH 31.2 (25.0-35.0) pg MCHC 34.7 (31.0-37.0) g/dL RDW 12.5 (11.5-15.5) % Plt Count 246 (150-450) k/uL MPV 8.1 Neutrophils % 79 % Lymphocytes % 11 % Monocytes % 7 % Eosinophils % 0 % Basophils % 0 % Neutrophils # 6.2 (1.3-7.7) k/uL Lymphocytes # 0.9 L (1.0-4.8) k/uL Monocytes # 0.6 (0-1.0) k/uL Eosinophils # 0.0 (0-0.7) k/uL Basophils # 0.0 (0-0.2) k/uL Hyperchromasia Slight PT 10.8 (9.0-12.0) sec INR 1.0 (<1.2) APTT 24.1 (22.0-30.0) sec Sodium 134 L (137-145) mmol/L Potassium 3.4 L (3.5-5.1) mmol/L Chloride 98 (98-107) mmol/L Carbon Dioxide 23 (22-30) mmol/L Anion Gap 13 mmol/L BUN 14 (9-20) mg/dL Creatinine 0.81 (0.66-1.25) mg/dL Est GFR (CKD-EPI)AfAm >90 (>60 ml/min/1.73 sqM) Est GFR (CKD-EPI)NonAf >90 (>60 ml/min/1.73 sqM) Glucose 109 H (74-99) mg/dL Plasma Lactic Acid Deejay (0.7-2.0) mmol/L Calcium 8.7 (8.4-10.2) mg/dL Magnesium 2.1 (1.6-2.3) mg/dL Total Bilirubin 0.9 (0.2-1.3) mg/dL AST 50 (17-59) U/L ALT 49 (4-49) U/L Alkaline Phosphatase 59 (38-126) U/L Lactate Dehydrogenase 714 H (313-618) U/L Troponin I (0.000-0.034) ng/mL C-Reactive Protein 3.6 H (<1.0) mg/dL NT-Pro-B Natriuret Pep pg/mL Total Protein 7.3 (6.3-8.2) g/dL Albumin 4.0 (3.5-5.0) g/dL 06/26/21 06/26/21 06/26/21 Range/Units 23:14 23:14 23:14 WBC (3.8-10.6) k/uL RBC (4.30-5.90) m/uL Hgb (13.0-17.5) gm/dL Hct (39.0-53.0) % MCV (80.0-100.0) fL MCH (25.0-35.0) pg MCHC (31.0-37.0) g/dL RDW (11.5-15.5) % Plt Count (150-450) k/uL MPV Neutrophils % % Lymphocytes % % Monocytes % % Eosinophils % % Basophils % % Neutrophils # (1.3-7.7) k/uL Lymphocytes # (1.0-4.8) k/uL Monocytes # (0-1.0) k/uL Eosinophils # (0-0.7) k/uL Basophils # (0-0.2) k/uL Hyperchromasia PT (9.0-12.0) sec INR (<1.2) APTT (22.0-30.0) sec Sodium (137-145) mmol/L Potassium (3.5-5.1) mmol/L Chloride (98-107) mmol/L Carbon Dioxide (22-30) mmol/L Anion Gap mmol/L BUN (9-20) mg/dL Creatinine (0.66-1.25) mg/dL Est GFR (CKD-EPI)AfAm (>60 ml/min/1.73 sqM) Est GFR (CKD-EPI)NonAf (>60 ml/min/1.73 sqM) Glucose (74-99) mg/dL Plasma Lactic Acid Deejay 1.3 (0.7-2.0) mmol/L Calcium (8.4-10.2) mg/dL Magnesium (1.6-2.3) mg/dL Total Bilirubin (0.2-1.3) mg/dL AST (17-59) U/L ALT (4-49) U/L Alkaline Phosphatase (38-126) U/L Lactate Dehydrogenase (313-618) U/L Troponin I <0.012 (0.000-0.034) ng/mL C-Reactive Protein (<1.0) mg/dL NT-Pro-B Natriuret Pep 67 pg/mL Total Protein (6.3-8.2) g/dL Albumin (3.5-5.0) g/dL - EKG Data -: EKG Interpreted by Me (EKG shows sinus rhythm 80 RI 156 QRS 112 QTc 472) - Radiology Data Radiology results: report reviewed (Chest x-rays negative for acute disease), i mage reviewed Disposition Clinical Impression: Coronavirus infection, Nausea & vomiting Disposition: HOME SELF-CARE Instructions (If sedation given, give patient instructions): Acute Nausea and Vomiting (ED), Coronavirus Disease 2019 (COVID-19) Prescriptions: Prochlorperazine [Compazine] 5 mg PO Q6HR #30 tab Pantoprazole [Protonix] 40 mg PO DAILY #30 tab Is patient prescribed a controlled substance at d/c from ED?: No Referrals: Deshawn Lima III, MD [Primary Care Provider] - 1-2 days
--- NOTE | 2021-06-26 23:36 | XR ---
EXAMINATION TYPE: XR chest 1V portable DATE OF EXAM: 06/26/2021 COMPARISON: NONE HISTORY: Short of breath TECHNIQUE: Single view FINDINGS: Heart and mediastinum are normal. Lungs are clear of consolidation. There are no hilar mass es. Costophrenic angles are clear. Bony thorax is intact. IMPRESSION: Normal heart. No definite acute lung disease.
[2021-06-26 23:46] LABS: Basophils % (A) 0 %; Eosinophils % (A) 0 %; HCT 44.9 % (39.0-53.0); HGB 15.6 gm/dL (13.0-17.5); Hyperchromasia Slight; Lymphocytes # (A) 0.9 k/uL (1.0-4.8); Lymphocytes % (A) 11 %; MCH 31.2 pg (25.0-35.0); MCHC 34.7 g/dL (31.0-37.0); Mean Platelet Volume 8.1; Monocytes # (A) 0.6 k/uL (0-1.0); Monocytes % (A) 7 %; Neutrophils # (A) 6.2 k/uL (1.3-7.7); Neutrophils % (A) 79 %; Platelet Count 246 k/uL (150-450); RBC 4.99 m/uL (4.30-5.90); RDW 12.5 % (11.5-15.5); WBC 7.9 k/uL (3.8-10.6)
[2021-06-27] LABS: ALT 49 U/L (4-49); AST 50 U/L (17-59); African American GFR (CKD) >90 (>60 ml/min/1.73 sqM); Alkaline Phosphatase 59 U/L (38-126); Anion Gap 13 mmol/L; Blood Urea Nitrogen 14 mg/dL (9-20); C Reactive Protein 3.6 mg/dL (<1.0); Calcium 8.7 mg/dL (8.4-10.2); Carbon Dioxide 23 mmol/L (22-30); Chloride 98 mmol/L (98-107); Glucose 109 mg/dL (74-99); LDH 714 U/L (313-618); Magnesium 2.1 mg/dL (1.6-2.3); Non-African American GFR(CKD) >90 (>60 ml/min/1.73 sqM); Potassium 3.4 mmol/L (3.5-5.1); Sodium 134 mmol/L (137-145); Total Bilirubin 0.9 mg/dL (0.2-1.3); Total Protein 7.3 g/dL (6.3-8.2)
[2021-06-27 00:14] LABS: Partial Thromboplastin Time 24.1 sec (22.0-30.0); Prothrombin Time 10.8 sec (9.0-12.0)
[2021-06-27] MEDS ORDERED: PANTOPRAZOLE 40 MG/10 ML VIAL IVP STA (00:33)
[2021-06-27] MEDS ORDERED: PROCHLORPERAZINE INJ 10 MG/2 ML VIAL IVP STA (00:33)
[2021-06-27] MEDS ORDERED: FAMOTIDINE 20 MG/2 ML VIAL IV STA (00:33)
[2021-06-27 02:11] VITALS: BP 130/62; PULSE 62; RESP 22; TEMP 99.2
== END 2021-06-27 01:30 | disposition home or self-care (01) ==
LOC: EC 17:08
DX: B34.2 Coronavirus infection, unspecified (principal); I10 Essential (primary) hypertension; M19.90 Unspecified osteoarthritis, unspecified site; Z88.8 Allergy status to other drugs, medicaments and biological substances
CPT/HCPCS: 36415; 93005; 83880; 80053; 83605; 83615; 83735; 84484; 85025; 85610; 85730; 86140; 71045; 99284; 96374; 96375 ×2; J0780; J1100; J1885; C9113

== ENCOUNTER → 2022-12-06 | Outpatient (CLI) | payer BC ==
[2022-12-07 02:10] LABS: ALT 19 U/L (10-49); AST 19 U/L (14-35); African American GFR (CKD) 101.3 (60.0-200.0); BUN/Creat Ratio 16.17 Ratio (12.00-20.00); Blood Urea Nitrogen 15.8 mg/dL (9.0-27.0); Calcium 9.6 mg/dL (8.7-10.3); Carbon Dioxide 24.1 mmol/L (20.0-27.5); Chloride 101 mmol/L (96-109); Creatine Kinase 106 U/L (35-257); Glucose 88 mg/dL (70-110); Non-African American GFR(CKD) 87.4 (60.0-200.0); Potassium 4.2 mmol/L (3.5-5.5); Sodium 138 mmol/L (135-145); Uric Acid 5.3 mg/dL (3.7-8.7)
[2022-12-07 02:24] LABS: Basophils # (A) 0.07 X 10*3/uL (0.00-0.10); Eosinophils # (A) 0.07 X 10*3/uL (0.04-0.35); HCT 44.5 % (39.6-50.0); HGB 14.5 g/dL (13.0-17.0); Immature Grans, Automated 0.4 %; Lymphocytes # (A) 1.51 X 10*3/uL (0.90-5.00); Lymphocytes % (A) 22.4 %; MCH 30.1 pg (27.0-32.0); MCHC 32.6 g/dL (32.0-37.0); MCV 92.5 fL (80.0-97.0); Mean Platelet Volume 9.6 fL (9.5-12.2); Monocytes # (A) 0.53 X 10*3/uL (0.20-1.00); Monocytes % (A) 7.9 %; NRBC Per 100 WBC 0 /100 WBCS (0.0-0.0); Neutrophils # (A) 4.53 X 10*3/uL (1.80-7.70); Neutrophils % (A) 67.3 %; Platelet Count 353 X 10*3/uL (140-440); RBC 4.81 X 10*6/uL (4.40-5.60); RDW 12.3 % (11.5-14.5); WBC 6.74 X 10*3/uL (4.50-10.00)
[2022-12-07 02:45] LABS: Rheumatoid Factor, Qnt <10 IU/mL (0-15)
[2022-12-07 04:28] LABS: Cyclic Citrull Pep IgG Unit <1.5 U/mL; Cyclic Citrullinated Pep IgG NEGATIVE (NEGATIVE)
[2022-12-07 04:50] LABS: Erythrocyte Sedimentation Rate 47 mm/Hr (0-20)
[2022-12-07 13:02] LABS: Angiotensin-1 Converting Enz. 15 U/L (8-52)
[2022-12-07 13:49] LABS: HLA B27 NEGATIVE
== END | disposition home or self-care (01) ==
LOC: LABWHC1 15:53
PROVIDERS: ATTEND Orthopaedic Surgery
DX: M79.641 Pain in right hand (principal); M79.642 Pain in left hand; M18.0 Bilateral primary osteoarthritis of first carpometacarpal joints
CPT/HCPCS: 36415; 80048; 82164; 82306; 82550; 83520; 84439; 84443; 84450; 84460; 84550; 85025; 85652; 86038; 86140; 86200; 86431; 86812

== ENCOUNTER → 2022-12-15 | Outpatient (CLI) | payer BC ==
[2022-12-15 21:35] LABS: Basophils # (A) 0.06 X 10*3/uL (0.00-0.10); Basophils % (A) 0.8 %; Eosinophils # (A) 0.13 X 10*3/uL (0.04-0.35); Eosinophils % (A) 1.6 %; HCT 43.6 % (39.6-50.0); HGB 14.3 g/dL (13.0-17.0); Immature Grans, Automated 1.1 %; Lymphocytes # (A) 1.88 X 10*3/uL (0.90-5.00); Lymphocytes % (A) 23.5 %; MCH 30.2 pg (27.0-32.0); MCHC 32.8 g/dL (32.0-37.0); MCV 92.2 fL (80.0-97.0); Mean Platelet Volume 9.3 fL (9.5-12.2); Monocytes % (A) 7.5 %; NRBC Per 100 WBC 0 /100 WBCS (0.0-0.0); Neutrophils # (A) 5.24 X 10*3/uL (1.80-7.70); Neutrophils % (A) 65.5 %; Platelet Count 306 X 10*3/uL (140-440); RBC 4.73 X 10*6/uL (4.40-5.60); RDW 12.8 % (11.5-14.5)
[2022-12-15 21:49] LABS: Erythrocyte Sedimentation Rate 20 mm/Hr (0-20)
[2022-12-15 22:04] LABS: ALT 17 U/L (10-49); AST 21 U/L (14-35); African American GFR (CKD) 105.8 (60.0-200.0); Albumin 4.2 g/dL (3.8-4.9); Albumin/Globulin Ratio 1.54 (1.60-3.17); Alkaline Phosphatase 54 U/L (41-126); BUN/Creat Ratio 17.41 Ratio (12.00-20.00); Blood Urea Nitrogen 16.4 mg/dL (9.0-27.0); C Reactive Protein <0.30 mg/dL (0.00-0.80); Calcium 9.2 mg/dL (8.7-10.3); Carbon Dioxide 24.5 mmol/L (20.0-27.5); Chloride 102 mmol/L (96-109); Chol/HDL Ratio 4.47 Ratio; Globulin 2.7 g/dL (1.6-3.3); Glucose 93 mg/dL (70-110); LDL Cholesterol,Calculated 162.1 mg/dL (0.0-131.0); Non-African American GFR(CKD) 91.3 (60.0-200.0); Potassium 4.3 mmol/L (3.5-5.5); Rheumatoid Factor, Qnt <10 IU/mL (0-15); Sodium 138 mmol/L (135-145)
[2022-12-15 23:33] LABS: DNA Double-Stranded NEGATIVE (NEGATIVE)
== END | disposition home or self-care (01) ==
LOC: LABWHC1 15:38
PROVIDERS: ATTEND Family Medicine
DX: Z00.00 Encounter for general adult medical examination without abnormal findings (principal); M25.542 Pain in joints of left hand; R03.0 Elevated blood-pressure reading, without diagnosis of hypertension
CPT/HCPCS: 86162; 80061; 80053; 85652; 85025; 86140; 86431; 86038; 86225; 36415; G0103